=== PATIENT | female | born 1980 | race Caucasian/White ===

== ENCOUNTER 2017-03-13 20:40 | Emergency (ER) | payer OTHER ==
--- NOTE | 2017-03-13 20:42 | PDOC ---
History of Present Illness - General Chief Complaint: Bite Stated Complaint: DOG BITE Time Seen by Provider: 03/13/17 20:42 History Source: Patient Exam Limitations: No Limitations - History of Present Illness Initial Comments: 03/13/17 21:19 Pt's relative's dog but her 5th finger. Now with swelling and pain. Bite was 6hrs prior to arrival. Dog has all its vaccines and pt doesn't require rabies IG. Timing/Duration: 4-6 hours Severity: mild Past History - Past Medical History Allergies/Adverse Reactions: Allergies Allergy/AdvReac Type Severity Reaction Status Date / Time diphenhydramine HCl Allergy Difficulty Verified 03/13/17 20:41 [From Benadryl] Breathing menthol Allergy Verified 03/13/17 20:41 MENTHO Allergy Difficulty Uncoded 06/13/13 13:21 Breathing Home Medications: Ambulatory Orders Clonazepam [KlonoPIN -] 2 mg PO HS 06/13/13 Clonazepam [Klonopin] 1 mg PO AM 06/13/13 Escitalopram Oxalate [Lexapro -] 30 mg PO DAILY 06/13/13 Esomeprazole Mag Trihydrate [Nexium] 40 mg PO DAILY 06/13/13 LamoTRIgine [LaMICtal] 150 mg PO HS 06/13/13 Lubiprostone [Amitiza] 24 mcg PO BID 06/13/13 Amoxicillin/Potassium Clav [Augmentin 875-125 Tablet] 1 each PO BID #14 tablet 03/13/17 Amoxicillin/Potassium Clav [Augmentin 875-125 Tablet] 1 each PO BID #14 tablet 03/13/17 Anemia: Yes GI Disorders: Yes (IBS,GERD) Psychiatric Problems: Yes (ANOREXIA) - Suicide/Smoking/Psychosocial Hx Smoking History: Never smoked Hx Alcohol Use: No Substance Use Type: None Review of Systems - Review of Systems Constitutional: No: Symptoms Reported, See HPI, Chills, Diaphoresis, Fever, Loss of Appetite, Malaise, Night Sweats, Weakness, Weight Stable, Unintentional Wgt. Loss, Unexplained wgt Loss, Other HEENTM: No: Symptoms Reported, See HPI, Eye Pain, Blurred Vision, Tearing, Recent change in vision, Double Vision, Cataracts, Ear Pain, Ocular Prothesis, Ear Discharge, Nose Pain, Nose Congestion, Tinnitus, Nose Bleeding, Hearing Loss , Throat Pain, Throat Swelling, Mouth Pain, Dental Problems, Difficulty Swallowing, Mouth Swelling, Other Respiratory: No: Symptoms reported, See HPI, Cough, Orthopnea, Shortness of Breath, SOB with Exertion, SOB at Rest, Stridor, Wheezing, Productive cough, Hemoptysis, Other Cardiac (ROS): No: Symptoms Reported, See HPI, Chest Pain, Edema, Irregular Heart Rate, Lightheadedness, Palpitations, Syncope, Chest Tightness, Other ABD/GI: No: Symptoms Reported, See HPI, Abdominal Distended, Abd. Pain w/ defecation, Blood Streaked Bowels, Constipated, Diarrhea, Difficulty Swallowing , Nausea, Poor Appetite, Poor Fluid Intake, Rectal Bleeding, Vomiting, Indigestion, Abdominal cramping, Tarry Stools, Other Musculoskeletal: No: Symptoms Reported, See HPI, Back Pain, Gout, Joint Pain, Joint Swelling, Muscle Pain, Muscle Weakness, Neck Pain, Joint Stiffness, Other Integumentary: No: Symptoms Reported, See HPI, Bruising, Change in Color, Change in Hair/Nails, Dryness, Erythema, Flushing, Lesions, Lumps, Pallor, Pruritus, Rash, Sweating, Other *Physical Exam - Physical Exam General Appearance: Yes: Nourished, Appropriately Dressed. No: Apparent Distress HEENT: positive: EOMI, YOLANDE, Normal ENT Inspection Neck: positive: Trachea midline, Normal Thyroid Respiratory/Chest: positive: Normal Breath Sounds Cardiovascular: positive: Regular Rhythm, Regular Rate Gastrointestinal/Abdominal: positive: Flat, Soft Lymphatic: positive: Other (Pt has no lymphangitis spread o infection no redness or streaking of her arm). negative: Adenopathy, Tenderness Musculoskeletal: positive: Normal Inspection Extremity: positive: Normal Capillary Refill, Normal Inspection, Normal Range of Motion, Tender (tenderness of the left 5th finger. No redness; mild swelling. Pt states that the pain goes toward her wrist.), Swelling (slight swelling and redness of the left 5th finger) Integumentary: positive: Normal Color, Dry, Warm Neurologic: positive: Fully Oriented, Alert, Normal Mood/Affect, Normal Response , Motor Strength 5/5 Medical Decision Making - Medical Decision Making 03/13/17 22:57 Pt is refusing to stay in the hospital as an inpatient, as she has a dog who is alone at her friend's home. Pt states that she will situate her dog, and return to the hospital for IV antibiotic treatment. Pt is able to range her finger, but she has limited range of flexion secondary to the pain. *DC/Admit/Observation/Transfer Diagnosis at time of Disposition: Dog bite, Puncture wound of finger - Discharge Dispostion Disposition: HOME Condition at time of disposition: Improved Admit: No - Prescriptions Prescriptions: Amoxicillin/Potassium Clav [Augmentin 875-125 Tablet] 1 each PO BID #14 tablet Amoxicillin/Potassium Clav [Augmentin 875-125 Tablet] 1 each PO BID #14 tablet - Referrals Referrals: Morgan Yañez MD [Staff Physician] - - Patient Instructions Printed Discharge Instructions: DI for Animal Bites, DI for Puncture Wound - Post Discharge Activity
[2017-03-13] MEDS ORDERED: AMOX TR/POT CLAV 875MG/125MG TABLETS (FP) PO ONE ×2 (20:43→20:48)
[2017-03-13 20:47] VITALS: BP 113/84; PULSE 69; TEMP 97.7; BMI 20.7
[2017-03-13] MEDS ORDERED: DIPHTH,PERTUSS(ACELL),TET 0.5 ML DISP.SYRIN IM ONE (20:49)
[2017-03-13] MEDS ORDERED: VANCOMYCIN 1,000 MG in DEXTROSE 5%-WATER - 250 ML IVPB ONE (20:51)
[2017-03-13] MEDS ORDERED: VANCOMYCIN 1,000 MG VIAL (RESTRICTED TO ID ONLY) ONE (20:56)
[2017-03-13] MEDS ORDERED: KETOROLAC TROMETHAMINE 30 MG/1 ML VIAL IVPUSH ONE (21:49)
[2017-03-13] MEDS ORDERED: KETOROLAC TROMETHAMINE 30 MG/1 ML VIAL ONE (21:50)
== END 2017-03-13 22:44 | disposition home or self-care (01) ==
LOC: FER 20:40
PROC: 3E0234Z Introduction of Serum, Toxoid and Vaccine into Muscle, Percutaneous Approach (ICD-10-PCS; principal; 2017-03-13)
PROC: 3E0333Z Introduction of Anti-inflammatory into Peripheral Vein, Percutaneous Approach (ICD-10-PCS; 2017-03-13)
PROC: 3E03329 Introduction of Other Anti-infective into Peripheral Vein, Percutaneous Approach (ICD-10-PCS; 2017-03-13)
DX: S61.237A Puncture wound without foreign body of left little finger without damage to nail, initial encounter (principal); W54.0XXA Bitten by dog, initial encounter; Y93.89 Activity, other specified; Y92.9 Unspecified place or not applicable
CPT/HCPCS: 90715; 99281-25

== ENCOUNTER 2022-06-27 13:16 | Emergency (ER) | payer OTHER ==
[2022-06-27 13:35] VITALS: BP 125/85; PULSE 67; RESP 16; TEMP 98.2
== END 2022-06-27 14:42 | disposition home or self-care (01) ==
LOC: FER 13:16
DX: S20.211A Contusion of right front wall of thorax, initial encounter (principal); R07.81 Pleurodynia; W10.8XXA Fall (on) (from) other stairs and steps, initial encounter
CPT/HCPCS: 71101-TC-RT-FY; 72070-TC-FY; 99284-25

== ENCOUNTER 2023-02-14 12:10 | Emergency (ER) | payer OTHER ==
[2023-02-14] MEDS ORDERED: METHOCARBAMOL 500 MG TABLET PO ONE (12:45)
[2023-02-14] MEDS ORDERED: IBUPROFEN 400 MG TABLET (FP) PO ONE ×2 (12:45→12:51)
[2023-02-14] MEDS ORDERED: LIDOCAINE 5% TOPICAL PATCH TP ONE (12:45)
[2023-02-14] MEDS ORDERED: LIDOCAINE 5% TOPICAL PATCH ONE (12:51)
[2023-02-14] MEDS ORDERED: METHOCARBAMOL 500 MG TABLET ONE (12:51)
[2023-02-14 12:58] VITALS: BP 120/76; PULSE 74; RESP 18; TEMP 98.7; BMI 20.4
[2023-02-14] MEDS ORDERED: LIDOCAINE PATCH REMOVAL MC ONE (22:00)
== END 2023-02-14 13:47 | disposition home or self-care (01) ==
LOC: FER 12:10
DX: M54.2 Cervicalgia (principal); H93.11 Tinnitus, right ear; V47.6XXA Car passenger injured in collision with fixed or stationary object in traffic accident, initial encounter
CPT/HCPCS: 99283-25